=== PATIENT | female | born 1940 | race Two or more races ===

== ENCOUNTER 2022-10-19 10:25 | Emergency (ER) | payer OTHER ==
[~2022-10-19] VITALS: Ht 152.4 cm; Wt 82.0 kg
[2022-10-19] MEDS ORDERED: SODIUM CHLORIDE 0.9% 1,000 ML IVB ONE (11:00)
[2022-10-19 11:22] LABS: Basophils # (auto) 0 10 ^3/uL (0-0.2); Basophils % (auto) 0.3 % (0.0-2.0); Eosinophils # (auto) 0 10 ^3/uL (0-0.8); Eosinophils % (auto) 0.8 % (0.0-7.0); Hematocrit 38.9 % (36.0-46.0); Hemoglobin 13.4 g/dL (12.2-16.2); Lymphocytes # (auto) 1.7 10 ^3/uL (0.4-5.4); Mean Corpuscular Hemoglobin 32.7 pg (28.0-32.0); Mean Corpuscular Hgb Conc. 34.5 g/dL (32.0-36.0); Mean Corpuscular Volume 94.8 fL (80.0-100.0); Monocytes # (auto) 0.3 10 ^3/uL (0-1.3); Monocytes % (auto) 6.8 % (0.0-12.0); Neutrophils # (auto) 2.7 10 ^3/uL (1.6-8.6); Neutrophils % (auto) 57.1 % (37.0-80.0); Nucleated Red Blood Cells % 0.1 %; Red Cell Distribution Width 13.4 % (11.8-14.3); White Blood Cell 4.7 10^3/uL (4.4-10.8)
[2022-10-19 11:26] LABS: Albumin 3.7 g/dL (3.4-5.0); Calcium 9.2 mg/dL (8.5-10.1); Potassium 4.5 mmol/L (3.5-5.1)
[2022-10-19 11:27] LABS: INR 1.03 (0.9-1.15); Partial Thromboplastin Time 26.2 sec (24.6-33.4)
[2022-10-19 11:36] LABS: Bilirubin, Total 0.6 mg/dL (0.2-1.0); Total Protein 7.4 g/dL (6.4-8.2)
[2022-10-19] MEDS ORDERED: ATOR20TA50 PO (16:34)
[2022-10-19] MEDS ORDERED: ASPI-325 PO (16:34)
[2022-10-19] MEDS ORDERED: AML5T PO (16:34)
[2022-10-19] MEDS ORDERED: LOSA-69 PO (16:34)
[2022-10-19] MEDS ORDERED: METF-370 PO (16:34)
[2022-10-19] MEDS ORDERED: cloNIDine HCL 0.1 MG TAB PO ONE (19:00)
[2022-10-19] MEDS ORDERED: cloNIDine HCL 0.1 MG TAB ONE (19:03)
[2022-10-19 20:28] VITALS: BP 165/95
== END 2022-10-19 20:30 | disposition home or self-care (01) ==
LOC: EDBD 10:25 → ER 10:25
DX: R07.89 Other chest pain (principal); R53.1 Weakness; R06.02 Shortness of breath
CPT/HCPCS: 36415; 71045; 80053; 83735; 83880; 84484; 85025; 85610; 85730; 93005

== ENCOUNTER 2024-02-25 12:30 | Emergency (ER) | payer OTHER ==
[~2024-02-25] VITALS: Ht 157.5 cm; Wt 68.2 kg
[~2024-02-25 12:30] MED LIST: AML5T PO; ASPI-325 PO; ATOR20TA50 PO; LOSA-534 PO; METF-370 PO
[2024-02-25] MEDS: ASPirin 81 mg TAB PO ONE (13:10)
[2024-02-25 13:15] LABS: Basophils # (auto) 0 10 ^3/uL (0-0.2); Basophils % (auto) 0.4 % (0.0-2.0); Eosinophils # (auto) 0.1 10 ^3/uL (0-0.8); Hematocrit 39.1 % (36.0-46.0); Hemoglobin 13.6 g/dL (12.2-16.2); Lymphocytes # (auto) 1.6 10 ^3/uL (0.4-5.4); Lymphocytes % (auto) 33.4 % (10.0-50.0); Mean Corpuscular Hgb Conc. 34.7 g/dL (32.0-36.0); Mean Corpuscular Volume 95.1 fL (80.0-100.0); Monocytes # (auto) 0.4 10 ^3/uL (0-1.3); Monocytes % (auto) 7.5 % (0.0-12.0); Neutrophils # (auto) 2.6 10 ^3/uL (1.6-8.6); Neutrophils % (auto) 55.7 % (37.0-80.0); Platelet Count (auto) 252 10^3/uL (140-450); Red Blood Cells 4.11 10^6/uL (4.0-5.20); Red Cell Distribution Width 13.8 % (11.8-14.3); White Blood Cell 4.7 10^3/uL (4.4-10.8)
[2024-02-25 13:23] LABS: Chloride 104 mmol/L (98-107); Potassium 4.1 mmol/L (3.5-5.1); Sodium 133 mmol/L (136-145)
[2024-02-25 13:24] LABS: Anion Gap 8 (5-15); Carbon Dioxide 21 mmol/L (20-30)
[2024-02-25 13:25] LABS: Calcium 9.7 mg/dL (8.7-10.4)
[2024-02-25 13:29] LABS: Glucose 261 mg/dL (74-106)
[2024-02-25 13:30] LABS: BUN/Creatinine Ratio 9.3 (10.0-20.0); Blood Urea Nitrogen 11 mg/dL (9-23)
[2024-02-25] MEDS ORDERED: PIPERACILLIN-TAZOB 2.25GM 50 ML IV ONE (15:45)
[2024-02-25] MEDS ORDERED: hydrALAZINE HCL 20 MG/ML VL IV ONE (16:15)
[2024-02-25 17:05] VITALS: BP 167/89; PULSE 80; RESP 16; TEMP 98; O2SAT 98
== END 2024-02-25 17:14 | disposition home or self-care (01) ==
LOC: ER 12:30
DX: I25.9 Chronic ischemic heart disease, unspecified (principal); R07.89 Other chest pain; R53.1 Weakness; I10 Essential (primary) hypertension; E11.9 Type 2 diabetes mellitus without complications; E78.5 Hyperlipidemia, unspecified; Z98.890 Other specified postprocedural states; Z88.5 Allergy status to narcotic agent; Z79.899 Other long term (current) drug therapy
CPT/HCPCS: 36415; 71045; 80048; 83880; 84484; 85025; 93005